=== PATIENT | male | born 1970 | race Caucasian/White ===

== ENCOUNTER → 2020-05-13 | Outpatient (CLI) | payer BC, OTHER ==
[~2020-05-13] MED LIST: COREG 25MG TAB25 MG PO; GABAPENTIN600 MG PO; HUMALOG 10100 UNITS/ SQ; LOSARTAN-HCTZ1 EAC1 PO; OXYCODONE-ACET1 EACH PO; TOUJEO MAX300 UNIT/1 SQ
== END ==
LOC: KOH-I 09:30
DX: R10.11 Right upper quadrant pain (principal); N28.1 Cyst of kidney, acquired
CPT/HCPCS: 74150

== ENCOUNTER → 2020-05-15 | Outpatient (CLI) | payer BC, OTHER | LOC: CT 10:00 | DX: N28.89 Other specified disorders of kidney and ureter (principal) | CPT/HCPCS: 36415; 74170; 82565; Q9967 ==

== ENCOUNTER → 2020-06-16 | Outpatient (CLI) | payer BC | LOC: CT 13:52 | DX: R91.1 Solitary pulmonary nodule (principal); R91.8 Other nonspecific abnormal finding of lung field | CPT/HCPCS: 71260; Q9963 ==

== ENCOUNTER → 2020-07-30 | Day surgery (SDC) | payer BC, OTHER | END | disposition home or self-care (01) | LOC: OR 07:27 | DX: D12.6 Benign neoplasm of colon, unspecified (principal); K64.0 First degree hemorrhoids; K64.4 Residual hemorrhoidal skin tags; I10 Essential (primary) hypertension; E78.00 Pure hypercholesterolemia, unspecified; E11.9 Type 2 diabetes mellitus without complications; Z79.4 Long term (current) use of insulin; Z79.899 Other long term (current) drug therapy | CPT/HCPCS: 82962; J2704; J7040 ==

== ENCOUNTER 2021-01-21 22:28 | Emergency (ER) | payer BC ==
[~2021-01-21] VITALS: Ht 172.7 cm; Wt 95.3 kg
[2021-01-21 23:11] LABS: HEMOGLOBIN 15.7 gm/dl (14.0-17.5); RED BLOOD COUNT 6.34 M/UL (4.20-5.50); WHITE BLOOD COUNT 6.4 K/UL (4.5-11.0)
[2021-01-21 23:34] LABS: BUN/CREATININE RATIO 29 (0-10)
== END 2021-01-22 04:25 | disposition home or self-care (01) ==
LOC: ER1 22:28
PROVIDERS: Physician Assistant
DX: Z23 Encounter for immunization (principal); U07.1 COVID-19; R05 Cough; I10 Essential (primary) hypertension; E11.9 Type 2 diabetes mellitus without complications
CPT/HCPCS: 71045; 80053; 85025; 99283; M0243

== ENCOUNTER → 2021-02-17 | Outpatient (CLI) | payer BC | LOC: KOH-I 14:51 | DX: M25.511 Pain in right shoulder (principal) | CPT/HCPCS: 73030 ==